=== PATIENT | female | born 1955 | race Caucasian/White ===

== ENCOUNTER → 2017-09-04 | Outpatient (CLI) | payer OTHER | LOC: FIMAGING 09:00 | PROVIDERS: ATTEND Obstetrics & Gynecology Gynecology | DX: Z12.31 Encounter for screening mammogram for malignant neoplasm of breast (principal) | CPT/HCPCS: G0202 ==

== ENCOUNTER 2017-10-27 19:45 | Emergency (ER) | payer OTHER ==
[2017-10-27 19:50] VITALS: TEMP 98.8; O2SAT 96
--- NOTE | 2017-10-27 20:03 | EDPHY ---
H & P Time Seen by Provider: 10/27/17 20:01 HPI/ROS: Chief complaint. Burning with urination HPI. 62-year-old female presents emergency department with 2 day history of urinary frequency and burning with urination. The urine had slight pink tinge with wiping. Patient notes her urine has been cloudy. No fever. No nausea or vomiting. No abdominal pain, fever, chest discomfort, trouble breathing. She now has right flank pain ROS Constitutional. no fever/chills, no weakness Eyes. no problems with vision ENT. no sore throat, no nasal drainage Cardiovascular. no chest pain Respiratory. no shortness of breath, no cough Abdominal. no abdominal pain, no nausea/vomiting, no diarrhea . Urinary frequency and burning with urination. Right flank pain MS. no calf pain/swelling, no neck/back pain, no joint pain Skin. no rash Lymph. no swollen glands Neuro. no headache, no dizziness, no difficulty walking or with speech Past Medical/Surgical History: Broken heart surgery 2003 Social History: , nonsmoker, no alcohol Smoking Status: Never smoked Physical Exam: General Appearance: Alert pleasant well-developed female mild distress vital signs are stable. Eyes: Pupils equal and round no pallor or injection. ENT, Mouth: Mucous membranes are moist. Respiratory: There are no retractions, lungs are clear to auscultation. Cardiovascular: Regular rate and rhythm. Gastrointestinal: Mild suprapubic discomfort. Right flank tenderness to palpation Neurological: Awake and alert, sensory and motor exams grossly normal. Skin: Warm and dry, no rashes. Musculoskeletal: Neck is supple nontender. Extremities symmetrical, full range of motion. Psychiatric: Patient is oriented X 3, there is no agitation. Constitutional: Initial Vital Signs Temperature (C) 37.1 C 10/27/17 19:47 Heart Rate 96 10/27/17 19:47 Respiratory Rate 18 10/27/17 19:47 Blood Pressure 134/89 H 10/27/17 19:47 O2 Sat (%) 96 10/27/17 19:47 O2 Delivery Mode Room Air Allergies/Adverse Reactions: Penicillins Allergy (Verified 05/01/12 10:21) Sulfa (Sulfonamide Antibiotics) [Sulfa(Sulfonamide Antibiotics)] Allergy ( Verified 05/01/12 10:21) Home Medications: Medication Instructions Recorded Cephalexin [Keflex (*)] 500 mg PO TID #21 cap 10/27/17 Medical Decision Making Procedures: IV normal saline IV Rocephin ED Course/Re-evaluation: Re-evaluation 9:00 p.m.. Patient is stable. She has had a L of saline and the 1 g Of Rocephin intravenously The patient and I discussed laboratory evaluation, treatment plan including criteria for return importance of follow-up and further evaluation. She expressed understanding and agreement Differential Diagnosis: This appears to be pyelonephritis. I considered kidney stone, urinary tract infection, cystitis - Data Points Laboratory Results: 10/27/17 20:00 Urine Color YELLOW Urine Appearance HAZY Urine pH 6.0 (5.0-7.5) Ur Specific [place] 1.004 (1.002-1.030) Urine Protein 1+ H (NEGATIVE) Urine Ketones NEGATIVE (NEGATIVE) Urine Blood 3+ H (NEGATIVE) Urine Nitrate NEGATIVE (NEGATIVE) Urine Bilirubin NEGATIVE (NEGATIVE) Urine Urobilinogen NEGATIVE EU EU (0.2-1.0) Ur Leukocyte Esterase 3+ H (NEGATIVE) Urine RBC 5-10 /hpf H /hpf (0-3) Urine WBC 50-182 /hpf H /hpf (0-3) Ur Epithelial Cells TRACE /lpf /lpf (NONE-1+) Urine Bacteria 4+ /hpf H /hpf (NONE SEEN) Urine Mucus TRACE /lpf /lpf (NONE-1+) Urine Glucose NEGATIVE (NEGATIVE) Medications Given: Ceftriaxone Sodium/Dextrose (Rocephin 1 Gm (Premix)) 50 mls @ 100 mls/hr IV EDNOW ONE PRN Reason: Protocol Stop: 10/27/17 21:13 Last Admin: 10/27/17 20:48 Dose: 50 mls Discontinued Medications Sodium Chloride (Ns) 1,000 mls @ 0 mls/hr IV EDNOW ONE; Wide Open PRN Reason: Protocol Stop: 10/27/17 20:13 Last Admin: 10/27/17 20:21 Dose: 1,000 mls Departure - Departure Disposition: Home, Routine, Self-Care Clinical Impression: Pyelonephritis Condition: Good Instructions: Kidney Infection (ED) Additional Instructions: Drink plenty of fluids and stay hydrated. Cephalexin 3 times daily as antibiotic. Return for worsening flank pain, vomiting. Recheck in 2 days if not improving Referrals: Bridgett Johnson [Primary Care Provider] - As per Instructions Prescriptions: Cephalexin [Keflex (*)] 500 mg PO TID #21 cap
[2017-10-27] MEDS ORDERED: NS 1,000 ML IV ONE (20:12)
[2017-10-27 21:18] VITALS: BP 124/77; PULSE 77; RESP 16
== END 2017-10-27 21:18 | disposition home or self-care (01) ==
DX: N12 Tubulo-interstitial nephritis, not specified as acute or chronic (principal); E86.9 Volume depletion, unspecified
CPT/HCPCS: 96365; J0696

== ENCOUNTER 2018-05-25 18:36 | Emergency (ER) | payer OTHER ==
[2018-05-25 18:55] VITALS: BP 157/91
--- NOTE | 2018-05-25 19:49 | EDPHY ---
H & P Stated Complaint: R 4th finger discoloration and stiffness x 1 day. Denies trauma/injury Time Seen by Provider: 05/25/18 18:50 HPI/ROS: 62-year-old female presents complaining of discoloration to her right 4th finger that she noticed this morning. She was hiking yesterday and was in an area with tall grass and thinks she may have had a and insect bite to that finger or hit it on something. She denies pain she denies fever or chills. She denies numbness or tingling in her hand she does not feel that her hands are cold. No history blood clots, not on a blood thinner. Review of systems As per HPI General no fever no chills no weakness HEENT no eye pain no eye discharge. No eye redness, no sore throat Respiratory no cough, no shortness of breath Cardiac no chest pain, no peripheral edema GI no abdominal pain, no diarrhea, no constipation, no nausea, no vomiting no flank pain, no hematuria, no dysuria Musculoskeletal no myalgias, no joint pain Heme no easy bruising, no easy bleeding Endo no polyuria, no polydipsia Skin positive rashes, no pruritus Neuro no syncope, no dizziness, no headaches Psych is no suicidal ideation, no homicidal ideation Source: Patient Exam Limitations: No limitations - Personal History Current Tetanus Diphtheria and Acellular Pertussis (TDAP): Yes Tetanus Vaccine Date: within 10 years - Medical/Surgical History Hx Asthma: No Hx Chronic Respiratory Disease: No Hx Diabetes: No Hx Cardiac Disease: Yes Hx Renal Disease: No Hx Cirrhosis: No Hx Alcoholism: No Hx HIV/AIDS: No Hx Splenectomy or Spleen Trauma: No Other PMH: broken heart sydrome 2003 - Family History Significant Family History: No pertinent family hx - Social History Smoking Status: Never smoked Alcohol Use: None Drug Use: None - Physical Exam Exam: 62-year-old female alert and oriented no acute distress nontoxic appearance, afebrile Alert and oriented in no acute distress nontoxic appearance, afebrile Atraumatic normocephalic Neck no JVD Lungs clear to auscultation, no respiratory distress Heart regular rate and rhythm Extremities no cyanosis clubbing edema Right hand- Full range of motion at wrist, at metacarpals, at all finger joints. Right 4th finger good capillary refill Dorsal aspect with discoloration from PIP to DIP with central clearing Volar aspect with purplish discoloration from crease at mcp to beginiing of dip does not include finger pad finger pad with good cap refill, normal color, fingernail with good cap refill , normal color good radial and ulnar pulses Constitutional: Initial Vital Signs Temperature (C) 37.1 C 05/25/18 18:51 Heart Rate 63 05/25/18 18:51 Respiratory Rate 16 05/25/18 18:51 Blood Pressure 157/91 H 05/25/18 18:51 O2 Sat (%) 97 05/25/18 18:51 O2 Delivery Mode Room Air Allergies/Adverse Reactions: Penicillins Allergy (Verified 05/25/18 18:54) PT reports hives Sulfa (Sulfonamide Antibiotics) [Sulfa(Sulfonamide Antibiotics)] Allergy ( Verified 05/25/18 18:54) pt reports hives Home Medications: Medication Instructions Recorded NK [No Known Home Meds] 05/25/18 Medical Decision Making ED Course/Re-evaluation: Patient seen and evaluated for right 4th finger discoloration. Impression Likely insect bite with local of reaction Plan dc home return if worsening benadryl q6 prn swelling, itching f/u pcp Differential Diagnosis: Differential diagnosis considered but not limited to : Finger infection, insect bite to finger with localized reaction, embolic event involving finger, Raynaud's, finger injury Departure - Departure Disposition: Home, Routine, Self-Care Clinical Impression: Insect bite of finger with local reaction Condition: Good Instructions: Insect Bite or Sting (ED) Referrals: Bridgett Johnson [Primary Care Provider] - As per Instructions
== END 2018-05-25 19:57 | disposition home or self-care (01) ==
LOC: CED 18:36
DX: S60.464A Insect bite (nonvenomous) of right ring finger, initial encounter (principal); W57.XXXA Bitten or stung by nonvenomous insect and other nonvenomous arthropods, initial encounter; Y99.8 Other external cause status; Y93.01 Activity, walking, marching and hiking

== ENCOUNTER → 2018-09-07 | Outpatient (CLI) | payer OTHER | LOC: FIMAGING 08:21 | PROVIDERS: ATTEND Obstetrics & Gynecology Gynecology | DX: Z12.31 Encounter for screening mammogram for malignant neoplasm of breast (principal) ==